=== PATIENT | female | born 1985 | race Caucasian/White ===

== ENCOUNTER 2016-11-24 13:46 | Emergency (ER) | payer MEDICAID ==
[2016-11-24] MEDS ORDERED: predniSONE 20 MG TABLET PO STA (14:39)
[2016-11-24] MEDS ORDERED: oxyCOD/ACETAMIN 5 MG/325 MG TABLET PO STA (14:39)
--- NOTE | 2016-11-24 14:41 | ED Physician Documentation ---
PD HPI BACK PAIN - Stated complaint Stated Complaint: BACK PAIN - Chief complaint Chief Complaint: Back Pain - History obtained from History obtained from: Patient - History of Present Illness Timing - onset: Other (31-year-old woman with chronic back pain, exacerbated over the last couple of weeks due to the new job. 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: section - Present Medications Home Medications: Ambulatory Orders Medication Instructions Recorded Confirmed Risperidone [Risperdal] 1 tab PO DAILY 03/26/16 11/24/16 Oxycodone HCl/Acetaminophen 1 - 2 tab PO Q4H PRN #10 tablet 11/24/16 [Percocet 5-325 mg Tablet] predniSONE [Deltasone] 20 mg PO [id number] #21 tab 11/24/16 - Allergies Allergies/Adverse Reactions: Allergies Allergy/AdvReac Type Severity Reaction Status Date / Time amoxicillin trihydrate * Allergy Mild Rash Verified 11/24/16 13:54 [From Amoxil] Penicillins Allergy Unknown Rash Verified 11/24/16 13:54 tramadol HCl * [From Ultram] AdvReac Nausea Verified 11/24/16 13:54 - Social History Does the pt smoke?: No Smoking Status: Former smoker Does the pt drink ETOH?: No Does the pt have substance abuse?: No - Immunizations Immunizations are current?: Yes - POLST Patient has POLST: No PD ED PE NORMAL - Vitals Vital signs reviewed: Yes - General General: Alert and oriented X 3, No acute distress - Back Back: No spinal TTP, Other (Tender in the right sciatic notch, more comfortable with right leg flexed. The patient has equal and normal patellar and Achilles reflexes bilaterally. Normal sensation in all areas of the legs. Patient denies saddle anesthesia. Normal strength in flexion and extension at the ankles, knees and flexion of the hips.) - Neuro Neuro: Alert and oriented X 3, Normal speech - Psych Psych: Normal mood, Normal affect Results - Vitals Vitals: Vital Signs - 24 hr 11/24/16 13:52 Temperature 36.7 C Heart Rate 100 Respiratory 18 Rate Blood Pressure 131/65 H O2 Saturation 100 Oxygen O2 Source Room air PD MEDICAL DECISION MAKING - ED course ED course: Spinal epidural abscess was considered in this patient. The patient has no fever , is not diabetic, has no spinal tenderness, does not use IV drugs, and no bilateral neurologic symptoms. Therefore, spinal epidural abscess is considered exceedingly unlikely. 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 Departure - Departure Disposition: Home, Self Care Clinical Impression: Back pain Qualifiers: Back pain location: low back pain Chronicity: acute Back pain laterality: right Sciatica presence: without sciatica Qualified Code(s): M54.5 - Low back pain Condition: Good Record reviewed to determine appropriate education?: Yes Instructions: ED Neck Back Pain General Prescriptions: predniSONE [Deltasone] 20 mg PO [id number] #21 tab Oxycodone HCl/Acetaminophen [Percocet 5-325 mg Tablet] 1 - 2 tab PO Q4H PRN #10 tablet PRN Reason: Pain Comments: Call your doctor to arrange a follow up appointment. Make the next available appointment. In the interim return anytime if worse or if new symptoms develop. Your blood pressure was elevated today on check in to the emergency department. This does not mean that you have hypertension, it is a common phenomenon to check into the emergency department and have elevated blood pressure. I recommend that you see your primary care physician within the week to have it rechecked when you're feeling better. Do not drink or drive while on narcotic pain medicine. Note that many narcotic pain relievers also contain tylenol/acetaminophen. Please ensure that your total dose of acetaminophen from all sources does not exceed 3 grams (3000mg) per day. You may constipated on this medication, take a stool softener such as "Colace" twice a day while you are on it. Also recommend a [id number] laxative such as senna or MiraLAX any day that you do not have a bowel movement. If you received narcotic pain medication in the emergency department, do not drive or operate machinery for the next 24 hours.
[2016-11-24 14:49] VITALS: BP 121/74
[2016-11-24] MEDS ORDERED: oxyCOD/ACETAMIN 5 MG/325 MG TABLET PO ONE (15:05)
[2016-11-24] MEDS ORDERED: predniSONE 20 MG TABLET ONE (15:06)
== END 2016-11-24 15:11 | disposition home or self-care (01) ==
LOC: ED 13:46
DX: M54.5 Low back pain (principal); G89.29 Other chronic pain; Z87.442 Personal history of urinary calculi; Z87.891 Personal history of nicotine dependence; R03.0 Elevated blood-pressure reading, without diagnosis of hypertension
CPT/HCPCS: 99282; 99283; A9270; J7512

== ENCOUNTER 2016-12-18 09:30 | Emergency (ER) | payer MEDICAID ==
[2016-12-18] MEDS ORDERED: KETOROLAC 30 MG/ML VIAL IVP STA (10:09)
[2016-12-18] MEDS ORDERED: KETOROLAC 30 MG/ML VIAL ONE (10:12)
[2016-12-18 10:34] LABS: BASOPHILS # (AUTO) 0.1 10^3/uL (0.0-0.1); BASOPHILS % (AUTO) 1.3 %; EOSINOPHILS % (AUTO) 0.4 %; HCT - HEMATOCRIT 39.1 % (37.0-47.0); LYMPHOCYTES # (AUTO) 1.6 10^3/uL (1.5-3.5); MEAN CORPUSCULAR HEMOGLOBIN 30.4 pg (27.0-31.0); MEAN CORPUSCULAR HGB CONC 33.2 g/dL (32.0-36.0); MEAN CORPUSCULAR VOLUME 91.8 fL (81.0-99.0); MEAN PLATELET VOLUME 7.3 fL (7.9-10.8); MONOCYTES # (AUTO) 0.5 10^3/uL (0.0-1.0); MONOCYTES % (AUTO) 8.5 %; NEUTROPHILS # (AUTO) 3.5 10^3/uL (1.5-6.6); NEUTROPHILS % (AUTO) 61.8 %; RED BLOOD COUNT 4.26 10^6/uL (4.20-5.40); RED CELL DISTRIBUTION WIDTH 13.3 % (12.0-15.0); UNCORRECTED WHITE BLOOD COUNT 5.7 x10^3/uL; WHITE BLOOD COUNT 5.7 x10^3/uL (4.8-10.8)
[2016-12-18 10:45] LABS: ALBUMIN/GLOBULIN RATIO 1.2 (1.0-2.2); BILIRUBIN,TOTAL 0.4 mg/dL (0.2-1.0); CALCIUM 9.3 mg/dL (8.5-10.3); CREATININE 0.6 mg/dL (0.4-1.0); POTASSIUM 3.5 mmol/L (3.5-5.0); TOTAL PROTEIN 7.5 g/dL (6.7-8.2)
--- NOTE | 2016-12-18 12:34 | Ultrasound Preliminary Report ---
Exam: US OB First Trimester IMPRESSION: Single living intrauterine fetus 8 weeks 2 days by crown-rump length. This is discordant with gestati onal sac size of 11 weeks 2 days. Normal cardiac activity. FIDENCIO by ultrasound 07/28/2017. No demonstrated cause for abdominal pain. [facility] SITE ID: [id number]
--- NOTE | 2016-12-18 12:37 | Ultrasound Report ---
EXAM: FIRST TRIMESTER OBSTETRIC ULTRASOUND (Less than 11 weeks) EXAM DATE: 12/18/2016 12:16 PM. CLINICAL HISTORY: 31-year-old female with abdominal pain. LMP: Unknown. COMPARISONS: None. TECHNIQUE: Transabdominal ultrasound examination with static image documentation. CLINICAL DATES: Uncertain. ASSESSMENT: Gestational Sac: Single intrauterine. Mean gestational sac diameter: 54 mm = 11 weeks 2 days. Embryo: CRL (crown-rump length) 19 mm = 8 weeks 2 days. Cardiac activity: 182 beats per minute. Yolk sac: 4.3 mm. Early placenta: Not visible at this gestational age. Other: No perigestational fluid collection demonstrated. MATERNAL STRUCTURES: Uterus: Anteverted. Unremarkable. Cervix: Closed. Right Ovary: Not demonstrated. Likely obscured by bowel gas.. Left Ovary: 2.7 x 1.8 x 1.5 cm, volume 3.8 cc. Unremarkable. Free Fluid: None. Other: None. IMPRESSION: Single living intrauterine fetus 8 weeks 2 days by crown-rump length. This is discordant with gestati onal sac size of 11 weeks 2 days. Normal cardiac activity. FIDENCIO by ultrasound 07/28/2017. No demonstrated cause for abdominal pain. [facility] Referring Provider Line: [phone] SITE ID: [id number]
[2016-12-18 13:09] LABS: BILIRUBIN,URINE NEGATIVE (NEGATIVE); PH,URINE 6.5 PH (5.0-7.5)
[2016-12-18 13:14] LABS: UA CHARGE (STRIP ONLY) YES; UR CULTURE IF IND NOT INDICATED
[2016-12-18] MEDS ORDERED: HYDROcod/ACETAM 5/325 MG TABLET PO STA (14:08)
[2016-12-18] MEDS ORDERED: HYDROcod/ACETAM 5/325 MG TABLET ONE (14:10)
--- NOTE | 2016-12-18 14:18 | ED Physician Documentation ---
PD HPI ABD PAIN - Stated complaint Stated Complaint: ABD PX - Chief complaint Chief Complaint: Abd Pain - History obtained from History obtained from: Patient - Additional information Additional information: This patient is a 31-year-old female with 2 prior pregnancies who presents with lower abdominal pain. Lower abdominal pain is been present for several days it is more on the left side. She denies any fever or chills. She has not had any nausea vomiting constipation diarrhea, or lower urinary symptoms. She does have a history of ovarian cysts and also endometriosis status post laparoscopy 2. The patient is also on control pills and denies that she can be . She has been taking Tylenol Motrin and also took a Percocet last night for the pain. Review of systems: For pertinent positive and negative questions for the review of systems please see history of present illness. Otherwise all other systems have been reviewed and are negative. Dragon disclaimer: Parts of this medical record were created using voice recognition technology. Because of the inherent limitations of this system occasional same sounding word substitutions do occur and persist despite proofreading. Please read the document for context. 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: section - Present Medications Home Medications: Ambulatory Orders Medication Instructions Recorded Confirmed Risperidone [Risperdal] 1 tab PO DAILY 03/26/16 12/18/16 Oxycodone HCl/Acetaminophen 1 - 2 tab PO Q4H PRN #10 tablet 11/24/16 12/18/16 [Percocet 5-325 mg Tablet] Control Pills 1 tab PO DAILY 12/18/16 - Allergies Allergies/Adverse Reactions: Allergies Allergy/AdvReac Type Severity Reaction Status Date / Time amoxicillin trihydrate * Allergy Mild Rash Verified 11/24/16 13:54 [From Amoxil] Penicillins Allergy Unknown Rash Verified 11/24/16 13:54 tramadol HCl * [From Ultram] AdvReac Nausea Verified 11/24/16 13:54 - Social History Does the pt smoke?: Yes Smoking Status: Current every day smoker Does the pt drink ETOH?: No Does the pt have substance abuse?: No - Immunizations Immunizations are current?: Yes - POLST Patient has POLST: No PD ED PE NORMAL - Vitals Vital signs reviewed: Yes - General General: Alert and oriented X 3, No acute distress - HEENT HEENT: Atraumatic, PERRL, EOMI - Neck Neck: Supple, no meningeal sign, No JVD - Cardiac Cardiac: RRR, No murmur - Respiratory Respiratory: No respiratory distress, Clear bilaterally - Abdomen Abdomen: Normal bowel sounds, Non tender - Female Female : Systems Development 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 - Derm Derm: Normal color - Extremities Extremities: No deformity, No tenderness to palpate, Normal ROM s pain, No edema - Neuro Neuro: Alert and oriented X 3, No motor deficit Results - Vitals Vitals: Vital Signs - 24 hr 12/18/16 12/18/16 09:48 12:28 Temperature 37.2 C Heart Rate 114 H 85 Respiratory 20 12 Rate Blood Pressure 114/65 106/67 O2 Saturation 100 100 Oxygen O2 Source Room air - Labs Labs: Laboratory Tests 12/18/16 12/18/16 12/18/16 10:20 10:20 10:20 WBC 5.7 RBC 4.26 Hgb 13.0 Hct 39.1 MCV 91.8 MCH 30.4 MCHC 33.2 RDW 13.3 Plt Count 232 MPV 7.3 L Neut # 3.5 Lymph # 1.6 [place] # 0.5 Eos # 0.0 Baso # 0.1 Absolute Nucleated RBC 0.00 Nucleated RBCs 0.0 Sodium 136 Potassium 3.5 Chloride 103 Carbon Dioxide 26 Anion Gap 7.0 BUN 8 Creatinine 0.6 Estimated GFR (MDRD) 117 Glucose 95 Calcium 9.3 Total Bilirubin 0.4 AST 21 ALT 14 Alkaline Phosphatase 45 Total Protein 7.5 Albumin 4.1 Globulin 3.4 Albumin/Globulin Ratio 1.2 Lipase 23 Serum HCG, Qual POSITIVE HCG, Quant Urine Color Urine Clarity Urine pH Ur Specific [place] Urine Protein Urine Glucose (UA) Urine Ketones Urine Occult Blood Urine Nitrite Urine Bilirubin Urine Urobilinogen Ur Leukocyte Esterase Ur Microscopic Review Urine Culture Comments 12/18/16 12/18/16 10:20 13:00 WBC RBC Hgb Hct MCV MCH MCHC RDW Plt Count MPV Neut # Lymph # [place] # Eos # Baso # Absolute Nucleated RBC Nucleated RBCs Sodium Potassium Chloride Carbon Dioxide Anion Gap BUN Creatinine Estimated GFR (MDRD) Glucose Calcium Total Bilirubin AST ALT Alkaline Phosphatase Total Protein Albumin Globulin Albumin/Globulin Ratio Lipase Serum HCG, Qual HCG, Quant [id number] Urine Color YELLOW Urine Clarity CLEAR Urine pH 6.5 Ur Specific [place] <=1.005 Urine Protein NEGATIVE Urine Glucose (UA) NEGATIVE Urine Ketones NEGATIVE Urine Occult Blood NEGATIVE Urine Nitrite NEGATIVE Urine Bilirubin NEGATIVE Urine Urobilinogen 0.2 (NORMAL) Ur Leukocyte Esterase NEGATIVE Ur Microscopic Review NOT INDICATED Urine Culture Comments NOT INDICATED PD MEDICAL DECISION MAKING - ED course ED course: Patient is a 31-year-old female with a history of ovarian cyst and endometriosis of control pills he comes in with left lower quadrant pain and tenderness without dysuria burning frequency or vaginal discharge. On exam she has mild tenderness left lower quadrant. I hope to avoid narcotics and she does have a history of frequent ED visits although there is no documentation showing that she has been to the emergency departments recently. While ultrasounding her left lower quadrant it was discovered that she is . Her serum quant was added on. There is disparate data regarding the patient' sSac size and IUP size. The sac size is 11 weeks and IUP 8 weeks. There is cardiac activity present in the patient's ovaries otherwise looked normal. Rest of the laboratory data is unremarkable. A pelvic examination was done which is normal. The office is closed there is no bleeding. Cultures were obtained and sent. Will have this patient follow-up with [facility]. Disposition: Home Clinical impression: 1. Left lower quadrant abdominal pain 2. Incidental intrauterine with discordant gestational sac and size 3. Possible early threatened AB Departure - Departure Disposition: 01 Home, Self Care Clinical Impression: with abdominal cramping of lower quadrant, antepartum, Condition: Good Instructions: ED Care, ED Pelvic Pain [facility] Follow-Up: Maryann Anders DO [Provider Admit Priv/Credential] -
[2016-12-18 14:28] VITALS: BP 123/76
== END 2016-12-18 14:33 | disposition home or self-care (01) ==
LOC: ED 09:30
DX: O26.891 Other specified pregnancy related conditions, first trimester (principal); N80.9 Endometriosis, unspecified; O99.331 Smoking (tobacco) complicating pregnancy, first trimester; Z3A.08 8 weeks gestation of pregnancy; Z87.442 Personal history of urinary calculi
CPT/HCPCS: 36415; 76801; 80053; 81003; 83690; 84702; 84703; 85025; 87210; 87491; 87591; 96374; 99283; 99284; A9270; 81001; 87086